=== PATIENT | male | born 1970 | race Caucasian/White ===

== ENCOUNTER → 2016-12-24 | Day surgery (SDC) | payer BC ==
[~2016-12-24] MED LIST: BUPIVACAINE/EPINEPHRINE 0.25% PF 30 ML VIAL ONE; LACTATED RINGER'S 1000 ML INJ 1,000 ML ONE; MIDAZOLAM HCL 2 MG/2 ML VIAL ONE; ONDANSETRON HCL 4 MG/2 ML VIAL IV PUSH ONE; ceFAZolin INJ 1,000 MG VIAL ONE
--- NOTE | 2016-12-27 10:28 | MP ---
cc: MEGHA HARRINGTON DATE OF SURGERY: 12/27/2016 PREOPERATIVE DIAGNOSIS: Right knee medial meniscus tear. POSTOPERATIVE DIAGNOSES Right knee medial meniscus tear. OPERATIVE PROCEDURE PERFORMED: Right knee arthroscopic partial medial meniscectomy. SURGEON: Dr. Megha Harrington. ANESTHESIA: General. ESTIMATED BLOOD LOSS: Less than 10 cc. TOURNIQUET TIME: Zero minutes. COMPLICATIONS: None. JUSTIFICATION FOR THE PROCEDURE: This patient is a 46-year male who injured the right knee. He has had persistent symptoms of pain in regards to his condition. He has failed conservative treatment. Clinical exam as well as MRI confirmed the above-named findings. The patient was counselled as to the risks, benefits and alternatives to the above-named proposed surgical procedure and he did wish to proceed with surgery. DESCRIPTION OF THE PROCEDURE IN DETAIL: Written consent was obtained. The patient was identified by name and he was taken to the operating room and placed in the supine position. General anesthesia was administered as well as 1 gram of IV Ancef. The right thigh was carefully placed in a well-padded leg harris. The right lower extremity was prepped and draped using isopropyl alcohol, Hibiclens solution and DuraPrep solution. After a time-out was performed, a medial lateral parapatellar arthroscopic portal was established. The patellofemoral joint revealed no significant chondromalacia. The medial collateral ligament Revealed a large unstable radial tear of the midbody and posterior horn of the medial meniscus. An arthroscopic biter followed by an arthroscopic shaver was introduced in the medial compartment to perform a partial meniscectomy. The meniscal rim was probed and noted be stable. There was very early slight grade 1 to grade 2 chondromalacic changes of the medial femoral condyle. The intercondylar notch revealed the anterior and posterior cruciate ligaments to be intact. The lateral compartment was free of meniscal pathology and chondromalacia. At the conclusion of the surgical procedure 30 mL of 0.5% Marcaine with epinephrine was injected into the joint. The arthroscopic portals were closed 3-0 Prolene suture. Sterile dressings were applied. The patient tolerated the procedure well. No intraoperative complications were noted. MD DIONNE Soni/MISTY /12:33 PM /10:18 AM
== END | disposition home or self-care (01) ==
LOC: EDBD 10:00 → ESDC 10:00
PROVIDERS: ATTEND Orthopaedic Surgery Sports Medicine
DX: S83.241A Other tear of medial meniscus, current injury, right knee, initial encounter (principal)
CPT/HCPCS: 01400; 29881; J0690; J2250; J2405; J3010; J7120